=== PATIENT | female | born 1995 | race Asian ===

== ENCOUNTER 2022-12-09 15:33 | Emergency (ER) | payer BC ==
[2022-12-09 16:08] VITALS: BP 116/75; PULSE 55; RESP 18; TEMP 99.4; BMI 23.1
[2022-12-09] MEDS ORDERED: SODIUM CHLORIDE 0.9% 500 ML INFUS.BAG IV ONE (16:13)
[2022-12-09] MEDS ORDERED: ACETAMINOPHEN 1000 MG/100 ML BAG IVPB ONE (16:25)
[2022-12-09] MEDS ORDERED: ACETAMINOPHEN INJECTION 100 ML IVPB ONE (16:28)
[2022-12-09 16:48] LABS: HCG,QUALITATIVE URINE Negative; HEMATOCRIT 42.3 % (32.4-45.2); HEMOGLOBIN 14.2 G/dL (10.7-15.3); MCH 31.4 pg (25.7-33.7); MCHC 33.5 g/dl (32.0-36.0); MEAN PLT VOLUME 8.2 fl (7.5-11.1); PLATELET COUNT 285.9 10^3/uL (134-434); RDW 13.1 % (11.6-15.6); WHITE BLOOD COUNT 11.4 10^3/uL (4.0-10.8)
[2022-12-09 17:00] LABS: ALBUMIN 4.5 g/dl (3.4-5.0); ALK PHOS 47 U/L (45-117); ANION GAP 9 MMOL/L (8-16); BILIRUBIN,TOTAL 0.8 mg/dl (0.2-1); BLOOD UREA NITROGEN 14.8 mg/dl (7-18); CALCIUM 9.2 mg/dl (8.5-10.1); CHLORIDE 104 mmol/L (98-107); CO2 23 mmol/L (21-32); CREATININE 0.8 mg/dl (0.6-1.3); GLUCOSE,RANDOM 87 mg/dl (74-106); POTASSIUM 4.3 mmol/L (3.5-5.1); SGOT/AST 17.4 U/L (15-37); SGPT/ALT 5.8 U/L (7-52); SODIUM 136 mmol/L (136-145); TOT PROT 7.3 g/dl (6.4-8.2)
[2022-12-09 17:06] LABS: EPITHELIAL CELLS FEW /hpf
[2022-12-09 17:16] LABS: PLATELET ESTIMATE ADEQUATE
== END 2022-12-09 18:15 | disposition home or self-care (01) ==
LOC: FER 15:33
PROC: 3E033NZ Introduction of Analgesics, Hypnotics, Sedatives into Peripheral Vein, Percutaneous Approach (ICD-10-PCS; principal; 2022-12-09)
DX: R55 Syncope and collapse (principal); R42 Dizziness and giddiness; S09.90XA Unspecified injury of head, initial encounter; W01.198A Fall on same level from slipping, tripping and stumbling with subsequent striking against other object, initial encounter
CPT/HCPCS: 36415; 71046-TC-FY; 80053; 81003; 81015; 83880; 84484; 84703; 85027; 93005; 99285-25